=== PATIENT | female | born 1995 | race Caucasian/White ===

== ENCOUNTER 2023-09-21 19:30 | Emergency (ER) | payer BC, OTHER ==
[2023-09-21] MEDS ORDERED: Lidocaine 1% 20 ML MDV ONE (19:47)
[2023-09-21] MEDS ORDERED: Lidocaine 1% 20 ML MDV INJECT ONE (19:52)
[2023-09-21] MEDS ORDERED: Bacitracin/Neomycin/Polymyxin B Oint 0.9 GM U/D Packet ONE (20:10)
[2023-09-21] MEDS ORDERED: Bacitracin/Neomycin/Polymyxin B Oint 28.4 GM Tube TOP ONE (20:20)
[2023-09-21] MEDS ORDERED: Bacitracin/Neomycin/Polymyxin B Oint 0.9 GM U/D Packet TOP ONE (20:22)
== END 2023-09-21 20:35 | disposition home or self-care (01) ==
LOC: KA.ED 19:30
DX: O9A.212 Injury, poisoning and certain other consequences of external causes complicating pregnancy, second trimester (principal); S61.011A Laceration without foreign body of right thumb without damage to nail, initial encounter; Z3A.21 21 weeks gestation of pregnancy; Z91.048 Other nonmedicinal substance allergy status; W25.XXXA Contact with sharp glass, initial encounter
CPT/HCPCS: 12002; 99282; 99283; J3490